=== PATIENT | female | born 1955 | race Caucasian/White ===

== ENCOUNTER 2023-11-16 16:16 | Emergency (ER) | payer MEDICARE, OTHER, SELFPAY ==
[2023-11-16 16:22] VITALS: BP 131/82
[2023-11-16 16:40] LABS: % Basophils 0.8 % (0-2); % Eosinophils 2.6 % (0-6); % Immature Granulocytes 0.2 % (0-0.5); % Lymphocytes 31.9 % (20.5-51.1); % Neutrophils 53.5 % (42.2-75.2); Absolute Basophils 0.1 10^3/uL (0-0.2); Absolute Eosinophils 0.2 10^3/uL (0-0.7); Absolute Monocytes 0.7 10^3/uL (0.1-0.6); Absolute Neutrophils 3.3 10^3/uL (1.4-6.5); Hematocrit 37.8 % (37.0-47.0); Hemoglobin 13.3 g/dL (12.0-16.0); Mean Corp Hgb Conc. 35.2 g/dL (33.0-37.0); Mean Corpuscular Hgb 29.6 pg (27.0-31.0); Mean Corpuscular Volume 84.2 fL (81.0-99.0); Mean Platelet Volume 9.7 fL (7.4-10.4); Nucleated Red Blood Cells % 0 %; Platelet Count 279 10^3/uL (130-400); Red Blood Cell Count 4.49 10^6/uL (4.20-5.40); Red Cell Dist. Width 13.3 % (11.5-14.5); White Blood Cell Count 6.2 10^3/uL (4.8-10.8)
[2023-11-16 16:51] LABS: APTT 28.2 Sec (23.4-35.0); INR 1.03; PT 13.3 Sec (11.4-14.6)
[2023-11-16 17:07] LABS: ALT (SGPT) 24 U/L (0-35); AST (SGOT) 31 U/L (14-36); Albumin 4.2 g/dl (3.5-5.0); Alkaline Phosphatase 96 U/L (38-126); Blood Urea Nitrogen 25 mg/dl (7-17); Calcium 9.2 mg/dl (8.4-10.2); Carbon Dioxide 27 mmol/L (22-30); Glucose 101 mg/dl (70-99); Total Bilirubin 0.6 mg/dl (0.2-1.3); Total Protein 7.4 g/dl (6.3-8.2); eGFR > 60.00
[2023-11-16 17:12] LABS: Troponin I < 0.012 ng/ml
[2023-11-16 17:16] LABS: Chloride 101 mmol/L (98-107); Potassium 4.2 mmol/L (3.5-5.1); Sodium 138 mmol/L (135-145)
[2023-11-16 19:30] VITALS: BMI 27.2
[2023-11-16 19:31] VITALS: BP 114/88
--- NOTE | 2023-11-16 19:34 | ED.GENMED ---
History of Present Illness
General
Chief Complaint: Heart Rate Problem
Exam Limitations: none
Time Seen by Provider: 11/16/23 19:24
Nursing documentation reviewed up to this point in time: agreed with
Travel History
Have you had any contact with someone who has COVID-19?: No
Do you have any symptoms of coronavirus? Fever > 100 degrees, chills, cough, shortness of breath, sore throat, loss of taste or smell, muscle aches, or headache?: No
History of Present Illness
History of Present Illness:
68-year-old female presents to the ER for evaluation. Patient reports 2 days ago she had a episode where her heart rate was elevated. She was sitting eating and felt a funny discomfort in her chest. Her [employer] watch told her that her heart rate
was 169. She did not feel that her heart was racing. She had no associated shortness of breath.
she also noticed that earlier that day while walking her heart rate was elevated as well but she did not have any symptoms. She had no associated shortness of breath with this. She has not had any symptoms since. She does drink about 4 cups of
black coffee per day. She denies any new [id number] cough cold medicines. Denies any other caffeine.
She reports though not related to this episode that for the past several months she has had intermittent episodes of left arm numbness that she mostly notices at night while sleeping. She did have a fall back in August and has had some
left-sided neck pain since. She was seen by her family doctor for this had unremarkable x-rays and was recommended to do physical therapy.
She has no cardiac history.
Since episode yesterday she has not had any episodes of chest pain.
She does mention that several days ago her dog and that has added to a component of stress.
Review of Systems
Review of Systems
Allergies reviewed?: Yes
All Other Systems: ROS reviewed and negative except as documented in HPI and ROS
Constitutional: Reports no symptoms; Denies fever, fatigue or chills
EENT: Reports no symptoms
Respiratory: Reports no symptoms
Cardiac: Reports chest pain and other (heart rate elevated on watch denied palpations ); Denies diaphoresis, palpitations or syncope
ABD/GI: Reports no symptoms
: Reports no symptoms
Musculoskeletal: Reports no symptoms
Neurological: Reports no symptoms
Hematologic/Lymphatic: Reports no symptoms
Psychiatric: Reports no symptoms
Phy Exam
General Physical Exam
General Presentation: no apparent distress
General age: appears stated age
General Skin: warm and dry
General Habitus: normal
General Mental: alert
General Hydration: appears well hydrated
Cardiovascular Exam
Cardiovascular Exam: regular rate/rhythm, no murmur and normal peripheral pulses
Pulmonary Exam
Pulmonary Exam: lungs clear and no respiratory distress
Neurological Exam
Neurological Exam: alert and oriented x3
Stanton Coma Scale
Eye Opening: Spontaneous
Verbal Response: Oriented
Motor Response: Obeys Commands
GCS Total Score: 15
Musculoskeletal Exam
Musculoskeletal Exam: full ROM
Skin Exam
Skin Exam: normal color and warm/dry
Psychiatric Exam
Psychiatric Exam: normal mood/affect
Course
Orders/Labs/Results
Orders:
Orders
11/16/23 16:26
Electrocardiogram (*1) Urgent
Reason for Study: Chest Pain
EKG- Treatment ONCE
11/16/23 16:35
Complete Blood Count/With Diff Urgent
Comprehensive Metabolic Panel Urgent
Protime/PTT Urgent
TSH Reflex To Free T4 Urgent
Comment: ADD ON
Troponin I Urgent
11/16/23 19:52
Add On- LAB Urgent
Tests Added?: tsh w/ reflexive t4
Abnormal Lab Results
11/16/23
16:35
Absolute Monos (auto) 0.7 H 10^3/uL
(0.1-0.6)
Monocytes % 11.0 H %
(1.7-9.3)
BUN 25 H mg/dl
(7-17)
Glucose 101 H mg/dl
(70-99)
11/16/23 16:35
11/16/23 16:35
Vital Signs
Initial and Last Documented VS:
Initial Vital Signs
Temp Pulse Resp BP Pulse Ox
98.2 F 71 18 131/82 97
11/16/23 16:22 11/16/23 16:22 11/16/23 16:22 11/16/23 16:22 11/16/23 16:22
Last Documented Vital Signs
Temp Pulse Resp BP Pulse Ox
98.2 F 58 20 114/88 99
11/16/23 16:22 11/16/23 19:31 11/16/23 19:31 11/16/23 19:31 11/16/23 19:31
Bobbin Inspector consulted with Physician
Bobbin Inspector consulted with physician?: Yes
Name of Physician Consulted: Charlene
MDM/Problems Addressed
Differential Diagnosis Includes:
Not limited to arrhythmia ,cervical radiculopathy less likely ACS
MDM/Problems Addressed:
Patient is a 68-year-old female who had an episode 2 nights ago of chest discomfort at that time her watch read heart rate in 169. She had no associated shortness of breath. She has been asymptomatic since. She presents to the awake alert no
acute distress heart rate in 70s. No chest pain or shortness of breath no arrhythmia here in the ER nontachypneic nonhypoxic nontachycardic. No obvious heart murmur on exam lungs are clear. She is in no acute distress.
Patient did mention she has had intermittent numbness in her left arm for the past couple months since August or September. She on exam has a normal neurological exam. No bony midline tenderness. She did have a fall in August was seen by her
family doctor for this had an unremarkable x-ray. I did look at the x-ray in the records here which showed degeneration but no fracture. She has normal sensation on exam. Based on history this numbness is not related to the episode 2 days ago. I
suspect this is possible cervical radiculopathy however she has a normal exam.
With regards to elevated heart rate. Again patient has been in normal sinus rhythm here in the ER patient will need outpatient cardiology follow-up and likely need a Holter monitor. I did add on TSH to her labs however all other labs with no other
concerning findings. Her BUN is mildly elevated.
Patient's sees Dr. Moreno therefore she wishes to follow-up with that group
*Critical Care Note
Total Time (30-74mins, 75-104mins- exclusive of procedures): Not Applicable
ED Attending Note
-
Portions of this chart may have been created with voice recognition software.� Occasional wrong word or��sound alike� substitutions may have occurred due to the inherent limitations of voice recognition software.
Discharge Plan
Departure
Patient Disposition: Home (Routine Discharge)
Date of Disposition: 11/16/23
Time of Disposition: 20:16
Patient with high blood pressure during this ER visit?: Yes
Condition: Fair
Covid-19: Not Applicable
Discharge Problem:
Chest pain, elevated heart rate
Instructions: Chest Pain DCA Follow Up, BLOOD PRESSURE
Referrals:
Ye Moreno MD [Active] -
Maria Isabel Kim MD [Family Provider] -
Activity Restrictions/Additional Instructions:
As discussed please call cardiology tomorrow for an appointment in the next several days. It is likely that you need a Holter monitor for further evaluation. Return however if any worsening of symptoms if chest pain, palpitations , dizziness.
Follow-up also with your family doctor for further evaluation of left arm intermittent numbness. You also may need further imaging including MRI.
Interventions
Interventions:
*Risk Screen - Suicide Last Done: 11/16/23 16:22
*General Assessment Last Done: 11/16/23 16:22
*Neglect/Abuse Screening Last Done: 11/16/23 16:22
ED- Fall Risk Assessment Last Done: 11/16/23 19:31
*ED COVID-19 Vaccine History Last Done: 11/16/23 16:22
ED- Cardiac Assessment Last Done: 11/16/23 19:31
ED- Pulmonary Assessment Last Done: 11/16/23 19:31
[2023-11-16 20:10] VITALS: BP 112/80
[2023-11-16 20:32] VITALS: BP 128/85
[2023-11-16 20:34] VITALS: BP 128/85
[2023-11-16 21:05] LABS: TSH Reflex To Free T4 1.71 uIU/ml (0.47-4.68)
== END 2023-11-16 20:37 | disposition home or self-care (01) ==
LOC: EMR 16:16
PROVIDERS: Emergency Medicine; EMERGENCY PHYSICIAN Emergency Medicine; FAMILY PHYSICIAN Family Medicine
DX: R07.89 Other chest pain (principal); I10 Essential (primary) hypertension
CPT/HCPCS: 99284; 80053; 84443; 84484; 85025; 85610; 85730; 93005

== ENCOUNTER → 2024-01-18 14:38 | Outpatient (REF) | payer MEDICARE, OTHER, SELFPAY | LOC: DHCBS MAIN 14:38 | PROVIDERS: ATTENDING PHYSICIAN Internal Medicine Cardiovascular Disease; FAMILY PHYSICIAN Family Medicine | DX: R00.2 Palpitations (principal) | CPT/HCPCS: 93306 ==

== ENCOUNTER → 2024-09-13 08:20 | Outpatient (REF) | payer MEDICARE, OTHER, SELFPAY ==
[2024-09-13 10:08] LABS: ALT (SGPT) 24 U/L (0-35); AST (SGOT) 30 U/L (14-36); Albumin 4.3 g/dl (3.5-5.0); Alkaline Phosphatase 78 U/L (38-126); Blood Urea Nitrogen 15 mg/dl (7-17); Calcium 9.7 mg/dl (8.4-10.2); Carbon Dioxide 32 mmol/L (22-30); Chloride 103 mmol/L (98-107); Glucose 84 mg/dl (70-99); Potassium 4.4 mmol/L (3.5-5.1); Sodium 142 mmol/L (135-145); Total Bilirubin 0.7 mg/dl (0.2-1.3); Total Protein 7.7 g/dl (6.3-8.2); eGFR > 60.00
[2024-09-13 10:50] LABS: Microalbumin, Random Urine <0.6 mg/dl (0.6-1.7)
== END ==
LOC: REG 08:20
PROVIDERS: ATTENDING PHYSICIAN Family Medicine
DX: R94.4 Abnormal results of kidney function studies (principal)
CPT/HCPCS: 36415; 80053; 82043; 82570

== ENCOUNTER → 2024-10-11 14:46 | Outpatient (REF) | payer MEDICARE, OTHER, SELFPAY | LOC: HWRAD 14:46 | PROVIDERS: ATTENDING PHYSICIAN Family Medicine | DX: Z78.0 Asymptomatic menopausal state (principal) | CPT/HCPCS: 77080 ==

== ENCOUNTER → 2024-11-08 08:50 | Outpatient (REF) | payer MEDICARE, OTHER, SELFPAY | LOC: WDC 08:50 | PROVIDERS: ATTENDING PHYSICIAN Family Medicine | DX: Z12.31 Encounter for screening mammogram for malignant neoplasm of breast (principal) | CPT/HCPCS: 77063; 77067 ==

== ENCOUNTER 2025-07-01 08:55 | Emergency (ER) | payer MEDICARE, OTHER, SELFPAY ==
[2025-07-01 09:04] VITALS: BP 137/83
--- NOTE | 2025-07-01 09:48 | ED.GENMED ---
History of Present Illness
General
Chief Complaint: Musculo-Skeletal Complaint
Source: patient and spouse ( at bedside)
Exam Limitations: none
Time Seen by Provider: 07/01/25 09:48
Nursing documentation reviewed up to this point in time: agreed with
History of Present Illness
History of Present Illness:
70-year-old female presenting to the emergency department for right shoulder pain after COVID vaccination yesterday. Patient states that she had a combined COVID/influenza vaccine yesterday afternoon in her right deltoid and noticed immediate onset
pain throughout her right shoulder. She reports a relatively constant, severe pain throughout her entire right shoulder since vaccination yesterday. She has some 'burning' sensation radiating down through her right forearm. She notices limited
range of motion in right shoulder due to pain.
No numbness or obvious muscular weakness in right upper extremity. No fever or chills. She has not noticed any redness or swelling to right arm.
Patient denies any history of prior vaccination reactions.
Review of Systems
Review of Systems
Allergies reviewed?: Yes
All Other Systems: ROS reviewed and negative except as documented in HPI and ROS
Phy Exam
Physical Exam
Physical Exam:
Vitals: Mildly hypertensive, otherwise vital signs stable. Afebrile
General: Patient is well appearing, no acute distress
Skin: Warm and dry, no rashes or lesions
Head: Normocephalic, atraumatic
Eyes: Sclera nonicteric.
Throat: Protecting airway
Neck: Normal ROM, no cervical spine tenderness, no meningismus
Cardiac: Regular rate and rhythm, no murmurs.
Pulm: Normal respiratory effort. Lungs clear bilaterally
Abdomen: Nondistended
Extremities: Generally reproducible tenderness of right shoulder without any obvious erythema, edema, or deformity. Decreased range of motion in right shoulder including flexion and abduction secondary to pain. Full range of motion of right elbow
and right wrist. 2+ palpable right brachial and radial pulse with normal sensation and capillary refill. Strength of right upper extremity intact
Neuro: AAOx3. Grossly intact.
Psychiatric: Normal affect.
Course
Orders/Labs/Results
Orders:
Orders
07/01/25 10:03
Ibuprofen [Motrin] 400 mg PO NOW STA
Shoulder, Right 2 Views [CR Shoulder - Right Min 2 View] Urgent
Comment:
Reason For Exam: Right shoulder pain s/p vaccine
07/01/25 11:16
Sling Right-Treatment ONCE
Vital Signs
Initial and Last Documented VS:
Initial Vital Signs
Temp Pulse Resp BP Pulse Ox
98.3 F 67 16 137/83 98
07/01/25 09:04 07/01/25 09:04 07/01/25 09:04 07/01/25 09:04 07/01/25 09:04
Last Documented Vital Signs
Temp Pulse Resp BP Pulse Ox
98.3 F 67 16 137/83 98
07/01/25 09:04 07/01/25 09:04 07/01/25 09:04 07/01/25 09:04 07/01/25 09:49
MDM/Problems Addressed
Differential Diagnosis Includes:
Not limited to: vaccination reaction, neuropathic pain, bursitis, osteoarthritis, etc
MDM/Problems Addressed:
70-year-old female with significant right shoulder pain after vaccination in right deltoid yesterday. Pain is diffuse throughout right shoulder region with some radiation into right forearm. No sensory deficits. No fever or infectious symptoms. No
significant weakness.
Vitals and exam as above. No obvious deformity or abnormality of right upper extremity. She does have somewhat diffuse tenderness to right shoulder with limited range of motion however no erythema, warmth, or infectious signs. Patient has palpable
right radial and brachial pulse with normal sensation.
X-ray of right shoulder without acute abnormalities. Ultimately � suspect pain secondary to recent vaccination. No evidence of infectious or vascular process today. Will give shoulder sling, advise supportive care at home including NSAIDs and
orthopedic follow up for further evaluation. Return precautions discussed.
Chronic conditions affecting care:
N/A
Acute Exacerbation and/or Progression of Chronic Illness:
N/A
*Radiology
Radiology exam reviewed: preliminary read by ED provider (Right shoulder x-ray reviewed by me-no acute abnormalities)
*Pulse Oximetry
SaO2: 98
Oxygen Mode of Delivery: Room air
Patient hypoxic: no
*EKG
Interpreted by ED Provider?: NA
*Commercial Pilot Interpretation
Rate: Commercial Pilot- N/A
*Critical Care Note
Total Time (30-74mins, 75-104mins- exclusive of procedures): Not Applicable
ED Attending Note
-
Portions of this chart may have been created with voice recognition software.� Occasional wrong word or��sound alike� substitutions may have occurred due to the inherent limitations of voice recognition software.
Discharge Plan
Departure
Patient Disposition: Home (Routine Discharge)
Date of Disposition: 07/01/25
Time of Disposition: 11:17
Patient with high blood pressure during this ER visit?: Yes
Condition: Good
Discharge Problem:
Acute pain of right shoulder
Instructions: How to Use a Shoulder Sling, Shoulder pain - ED (DC), BLOOD PRESSURE
Referrals:
Chip Trent MD [Active, Orthopedics] - Next open appointment
Maria Isabel Kim MD [Family Provider, Family Practice]
Activity Restrictions/Additional Instructions:
RETURN TO THE EMERGENCY DEPARTMENT WITH ANY INTRACTABLE PAIN, NUMBNESS OR SIGNIFICANT WEAKNESS IN RIGHT UPPER EXTREMITY, ANY SIGNS OF INFECTION INCLUDING REDNESS, WARMTH, FEVER, OR ANY OTHER SIGNS CONCERNING TO YOU
- The x-ray of your right shoulder showed no acute abnormalities. Your symptoms seem consistent with a reaction to the vaccination you received.
- As discussed - you should continue to rest and ice your right shoulder. Please wear shoulder sling however you should remove your arm from sling and mobilize your shoulder multiple times a day. Take NSAIDs (ibuprofen, Motrin, Advil, or Aleve) as
needed for pain. You can take Tylenol, in addition as needed.
- Follow-up with orthopedics for further evaluation/management and to ensure that your symptoms improve. You may require further imaging
Monitor your symptoms closely and return to the emergency department with any new symptoms or any other concern
Interventions
Interventions:
*Risk Screen - Suicide Last Done: 07/01/25 09:04
*General Assessment Last Done: 07/01/25 11:36
*Neglect/Abuse Screening Last Done: 07/01/25 09:04
*ED- Fall Risk Assessment Last Done: 07/01/25 11:36
*Nursing Disposition Last Done: 07/01/25 11:38
ED-Musculoskeletal Assessment Last Done: 07/01/25 11:38
Discharge Date and Time
Discharge Date/Time: 07/01/25 11:58
Print Language: ESTONIAN
[2025-07-01] MEDS: MOTRIN 400 MG PO (10:19)
== END 2025-07-01 11:58 | disposition home or self-care (01) ==
LOC: EMR 08:55
PROVIDERS: EMERGENCY PHYSICIAN Emergency Medicine; FAMILY PHYSICIAN Family Medicine
DX: M25.511 Pain in right shoulder (principal); T50.B95A Adverse effect of other viral vaccines, initial encounter
CPT/HCPCS: 99283; 73030

== ENCOUNTER → 2025-08-31 14:20 | Outpatient (REF) | payer MEDICARE, OTHER, SELFPAY | LOC: RAD 14:20 | PROVIDERS: ATTENDING PHYSICIAN Family Medicine | DX: R07.81 Pleurodynia (principal); M25.522 Pain in left elbow | CPT/HCPCS: 71101; 73080 ==

== ENCOUNTER → 2025-09-15 07:49 | Outpatient (REF) | payer MEDICARE, OTHER, SELFPAY | LOC: HWRAD 07:49 | PROVIDERS: ATTENDING PHYSICIAN Internal Medicine Cardiovascular Disease; FAMILY PHYSICIAN Family Medicine | DX: R42 Dizziness and giddiness (principal); I67.89 Other cerebrovascular disease | CPT/HCPCS: 93880 ==